=== PATIENT | female | born 1985 | race African-American/Black ===

== ENCOUNTER 2018-03-08 17:19 | Emergency (ER) | payer OTHER | END 2018-03-08 18:00 | disposition home or self-care (01) | LOC: SCSER 17:19 | DX: O99.89 Other specified diseases and conditions complicating pregnancy, childbirth and the puerperium (principal); M54.2 Cervicalgia; M25.562 Pain in left knee; Z3A.11 11 weeks gestation of pregnancy | CPT/HCPCS: 99283 ==

== ENCOUNTER 2018-03-13 20:39 | Emergency (ER) | payer OTHER ==
[2018-03-13] MEDS ORDERED: Acetaminophen 325 MG TAB ONE (21:18)
[2018-03-13 21:39] LABS: Bilirubin Negative (Negative); Blood, Urine Negative (Negative); Glucose, Urine (Dipstick) Negative (Negative); Leukocyte Large (Negative); Nitrite Negative (Negative); Protein, Urine (Dipstick) Negative (Neg-Trace); pH, Urine 7.5 (5.0-9.0)
[2018-03-13 21:43] LABS: Clarity Cloudy (Clear)
[2018-03-13 21:45] LABS: RBC/HPF None Seen HPF (0-3)
[2018-03-13 21:46] LABS: Bacteria/HPF 2+ HPF (None Seen); Crystals/HPF 1+ AMORPH PHOS HPF (Negative)
== END 2018-03-13 21:55 | disposition home or self-care (01) ==
LOC: SCSER 20:39
DX: O99.89 Other specified diseases and conditions complicating pregnancy, childbirth and the puerperium (principal); M54.5 Low back pain; Z3A.12 12 weeks gestation of pregnancy
CPT/HCPCS: 81003; 81015; 99283

== ENCOUNTER 2018-08-30 22:41 | Inpatient (IN) | payer OTHER ==
[~2018-08-30 22:41] MED LIST: Bupivacaine/Epinephrine 0.25% 30 ML VIAL ONE
[2018-08-30 23:50] VITALS: BMI 38.7
[2018-08-30 23:55] LABS: Amnisure Test RUPTURE DETECTED (No Rupture)
[2018-08-30 23:56] LABS: Amnisure Internal Control QC ACCEPTABLE (ACCEPTABLE)
[2018-08-31] MEDS: Lactated Ringer's 1,000 ML IV SCH ×2 (00:15→08:36)
[2018-08-31] MEDS ORDERED: NS / Oxytocin 40 units/1000ml 1,000 ML IV PRN (00:16)
[2018-08-31] MEDS ORDERED: Misoprostol 200 MCG TAB PR PRN (00:16)
[2018-08-31] MEDS ORDERED: Ibuprofen 800 MG TAB PO PRN (00:16)
[2018-08-31] MEDS ORDERED: Methylergonovine 0.2 MG/ML VIAL IM PRN ×2 (00:16→17:30)
[2018-08-31] MEDS ORDERED: Lidocaine 1% (PF) 30 ML VIAL SC PRN (00:16)
[2018-08-31] MEDS ORDERED: Promethazine HCl 25 MG/ML VIAL IM PRN ×2 (00:16→08:35)
[2018-08-31] MEDS ORDERED: HYDROcodone/Acetaminophen 5/325 mg Tablet PO PRN ×4 (00:16→17:30)
[2018-08-31] MEDS ORDERED: Butorphanol Tartrate 1 MG/ML VIAL SLOW IVP PRN (00:16)
[2018-08-31] MEDS ORDERED: Ondansetron PF 4 MG/2 ML Vial IVP PRN ×2 (00:16→08:35)
[2018-08-31] MEDS ORDERED: NS w/ Oxytocin 10 units 500 ML IV SCH (00:30)
[2018-08-31 01:14] LABS: Hemoglobin 10.9 g/dL (12.0-16.0); Mean Corpuscular HGB CONC 32.6 g/dL (32.0-36.0); Mean Corpuscular Hemoglobin 34.1 pg (27.0-31.0); Mean Platelet Volume 6.7 fL (7.4-10.4); Platelet Count 283 thou/uL (130-400); RBC Distribution Width 13.4 % (11.5-14.5); Red Blood Cell (RBC) Count 3.19 mill/uL (4.20-5.40); White Blood Cell (WBC) Count 7.9 thou/uL (4.8-10.8)
[2018-08-31] MEDS: Misoprostol 100 MCG TAB PO SCH ×4 (01:32→12:51)
[2018-08-31 01:54] LABS: HBSAg Index 0.28 S/CO (0-0.99); Hep B Surf Ag Non-Reactive S/CO (NonReactive)
[2018-08-31 03:51] LABS: Syphilis Antibody Nonreactive (Nonreactive); Syphilis Antibody Index 0.03 S/CO (<1.00 Non-Reactive)
[2018-08-31] MEDS ORDERED: Fentanyl 4 mcg/Bup 0.1% Cadd 100 ML ONE (07:41)
[2018-08-31] MEDS ORDERED: Lidocaine 1.5%/Epinephrine 1:200,000 5 ML AMPUL IJ ONE ×2 (07:42→08:53)
[2018-08-31] MEDS ORDERED: Eucerin (Mineral Oil/Petrolatum,White) 30 gm Jar TOP PRN (08:35)
[2018-08-31] MEDS ORDERED: Lactated Ringer's 500 ML IV PRN (08:35)
[2018-08-31] MEDS ORDERED: Acetaminophen 325 MG TAB PO PRN (08:35)
[2018-08-31] MEDS ORDERED: diphenhydrAMINE 50 MG/ML VIAL IVP PRN (08:35)
[2018-08-31] MEDS ORDERED: Naloxone HCl 0.4 mg/ml Vial IVP PRN ×2 (08:35)
[2018-08-31] MEDS ORDERED: ePHEDrine/0.9% NaCl/PF SYRINGE 50 mg/10 ml SLOW IVP PRN (08:35)
[2018-08-31] MEDS ORDERED: Fentanyl 4 mcg/Bupivacaine 0.1% Cassette 100 ML EPIDURAL SCH (08:45)
[2018-08-31] MEDS ORDERED: Communication Order-Pharmacy FS SCH (08:45)
--- NOTE | 2018-08-31 14:42 | PDOC.LDHP ---
Labor and Delivery H&P Chief complaint: loss of fluid HPI: Patient arrived to hospital reporting that her water broke. Current gestational age (weeks): 37 Due date: 09/17/18 Dating criteria: first trimester ultrasound Grav: 3 Para: 2 OB History Details: G1 1997 7.5 G2 SAB G3 2000 6lbs. at 34 weeks G4 current. Current complications: other (Mild range systolic blood pressure elevations - GHTN) Abnormal US findings: No Current medications: pre-christie vitamins, iron Previous surgical history: other (laproscopy procedure) Allergies/Adverse Reactions: Allergies Allergy/AdvReac Type Severity Reaction Status Date / Time No Known Allergies Allergy Verified 08/31/18 00:04 - Physical Exam Abnormal vital signs: Occ systolic elevations 140s. General: NAD Lungs: nonlabored breathing Abdomen: gravid - Vaginal Exam cm dilated: 0 Effacement: 25% Station: -3 - OB Labs Blood type: O RH: positive Antibody Screen: negative HIV: negative RPR: negative HEPSAg: negative 1 hour GCT: negative GBS: negative Urine drug screen: negative Rubella: immune Additional Labs: Trichomoniasis in early pregnacy - neg CHERYL and neg CHERYL at 36 weeks gestation. - Assessment L&D Assessment: term rupture in membranes - Plan Plan: admit to L&D, cervical ripening, anesthesia consult for pain management
--- NOTE | 2018-08-31 16:09 | DN ---
DATE OF PROCEDURE: 08/31/2018 The patient delivered a female on 08/31/2018 at 1452 hours by an uncomplicated term spontaneous vaginal delivery at 37 weeks gestation. Apgars were 8 and 9. Weight is unavailable at the time of dictation. Placenta delivered spontaneously followed by a Pitocin infusion. Quantitative blood loss is 310 mL. There were no lacerations. Dr. Reymundo Vance is the delivering physician. Counts were correct. Mother and baby are both stable in the immediate . Job ID: [id number]
[2018-08-31] MEDS ORDERED: Varicella virus, LIVE 0.5 ML VIAL SC ONE (17:30)
[2018-08-31] MEDS ORDERED: NS / Oxytocin 40 units/1000ml 1,000 ML IV SCH (17:30)
[2018-08-31] MEDS ORDERED: Bisacodyl 10 MG SUPP PR PRN (17:30)
[2018-08-31] MEDS ORDERED: diphenhydrAMINE 25 MG CAP PO PRN (17:30)
[2018-08-31] MEDS ORDERED: Milk Of Magnesia 30 ML UDCUP PO PRN (17:30)
[2018-08-31] MEDS ORDERED: Adacel (T-DAP) 0.5 ML SYRINGE IM ONE (17:30)
[2018-08-31] MEDS ORDERED: Measles/Mumps/Rubella 10 MCG/0.5 ML VIAL SC ONE (17:30)
[2018-08-31] MEDS ORDERED: Benzocaine/Menthol 20-0.5% 60 ML CAN TOP PRN (17:30)
[2018-08-31] MEDS ORDERED: Misoprostol 200 MCG TAB VAG PRN (17:30)
[2018-08-31] MEDS ORDERED: Ferrous Sulfate 325 MG TAB PO SCH (17:45)
[2018-08-31] MEDS: Docusate Calcium (SURFAK) 240 MG CAP PO SCH (20:20)
[2018-08-31] MEDS: Ibuprofen 800 MG TAB PO SCH (20:20)
[2018-09-01] MEDS: Ibuprofen 800 MG TAB PO SCH ×3 (05:47→21:48)
[2018-09-01 07:30] LABS: Hemoglobin 9.7 g/dL (12.0-16.0); Mean Corpuscular HGB CONC 31.5 g/dL (32.0-36.0); Mean Platelet Volume 6.9 fL (7.4-10.4); Platelet Count 271 thou/uL (130-400); RBC Distribution Width 13.5 % (11.5-14.5); Red Blood Cell (RBC) Count 2.94 mill/uL (4.20-5.40); White Blood Cell (WBC) Count 10.2 thou/uL (4.8-10.8)
[2018-09-01] MEDS: Ferrous Sulfate 325 MG TAB PO SCH ×2 (07:43→15:18)
[2018-09-01] MEDS: Lactated Ringer's 1,000 ML IV SCH (07:45)
[2018-09-01] MEDS: Misoprostol 100 MCG TAB PO SCH (07:45)
[2018-09-01] MEDS: Docusate Calcium (SURFAK) 240 MG CAP PO SCH ×2 (09:51→21:48)
[2018-09-02] MEDS: Ibuprofen 800 MG TAB PO SCH ×2 (06:12→14:13)
[2018-09-02 07:59] VITALS: BP 118/58; TEMP 98
[2018-09-02] MEDS: Ferrous Sulfate 325 MG TAB PO SCH ×2 (10:20→17:10)
[2018-09-02] MEDS: Docusate Calcium (SURFAK) 240 MG CAP PO SCH (10:20)
--- NOTE | 2018-09-02 13:47 | PDOC.PP ---
Post Progress Note Post Day #: 1 Vital Signs (12 hours) Temp Pulse Resp BP Pulse Ox 09/02/18 07:40 98.0 F 63 18 118/58 L 98 Weight Weight 212 lb - Physical Examination General: NAD Result Diagrams: 09/01/18 06:49 Additional Labs: Post Labs Blood Type O POSITIVE 08/31/18 08:05 Hep Bs Antigen Non-Reactive S/CO (NonReactive) 08/31/18 01:01 (1) SROM (spontaneous rupture of membranes) Code(s): NIB7044 - Status: Resolved (2) Normal delivery at term Code(s): O80 - ENCOUNTER FOR FULL-TERM UNCOMPLICATED DELIVERY Status: Resolved - Assessment/Plan PPD#1 s/p tsvd continue in house pp care anticipate d/c tomorrow
--- NOTE | 2018-09-03 06:43 | DIS ---
DATE OF ADMISSION: 08/31/2018 DATE OF DISCHARGE: 09/02/2018 ADMITTING DIAGNOSES: 1. Intrauterine at term, 37 weeks. 2. Spontaneous rupture of membranes. DISCHARGE DIAGNOSES: 1. Intrauterine at term, 37 weeks. 2. Spontaneous rupture of membranes. PROCEDURE: Term spontaneous vaginal delivery. HOSPITAL COURSE: The patient is a 33-year-old G4, P2 female with an intrauterine at 37 weeks, who was presented with spontaneous rupture of membranes and was admitted by her provider, Marianne Vargas CNM, for induction of labor. The patient's course was uncomplicated and resulted in uncomplicated term spontaneous vaginal delivery and then was subsequently sent to for recovery. Her course has been uncomplicated, is now day #2. The patient had no complaints this morning. She reports that she is tolerating p.o., voiding on her own, having decreased lochia, and good pain control. PHYSICAL EXAMINATION: VITAL SIGNS: Blood pressure is 118/58, temperature 98.0, pulse is 63, respiratory rate of 18, saturating 98% on room air. GENERAL: She appears to be in no acute distress. She is alert, oriented, cooperative, and pleasant to interact with. ABDOMEN: Fundus is firm. EXTREMITIES: Nontender. LABORATORY STUDIES: Her hemoglobin 9.7, hematocrit 30.9, platelets 271,000. The patient is being discharged to home with [id number] ibuprofen for pain control. She has instructions to follow up with her primary provider, Marianne Vargas CNM, in 6 weeks or sooner if she experiences fever, increasing pain, or bleeding. Job ID: [id number]
== END 2018-09-02 18:31 | disposition home or self-care (01) | DRG 807 ==
LOC: L&D/OP 22:41 → L&D 08-31 00:43 → 3SW 08-31 17:35
PROVIDERS: ADMIT Student in an Organized Health Care Education/Training Program; ATTEND Student in an Organized Health Care Education/Training Program
PROC: 10E0XZZ Delivery of Products of Conception, External Approach (ICD-10-PCS; principal; 2018-08-31)
DX: O13.4 Gestational [pregnancy-induced] hypertension without significant proteinuria, complicating childbirth (principal); Z37.0 Single live birth; O99.02 Anemia complicating childbirth; D50.9 Iron deficiency anemia, unspecified; Z3A.37 37 weeks gestation of pregnancy
CPT/HCPCS: 36415; 51702; 84112; 85027; 86780; 86850; 86900; 86901; 87340; 99285; J1200; J2001; J2405; J3490; Q0163

== ENCOUNTER 2019-05-24 18:34 | Emergency (ER) | payer OTHER, SELFPAY ==
[2019-05-24] MEDS ORDERED: Lidocaine 1% w/Epinephrine 1:100K 20 ML VIAL ONE (19:12)
== END 2019-05-24 19:41 | disposition home or self-care (01) ==
LOC: SCSER 18:34
DX: L02.412 Cutaneous abscess of left axilla (principal)
CPT/HCPCS: 10060

== ENCOUNTER 2021-06-11 21:09 | Emergency (ER) | payer SELFPAY ==
[2021-06-11] MEDS ORDERED: Lidocaine 1% PF 5 ML VIAL ONE (22:42)
== END 2021-06-12 00:05 | disposition home or self-care (01) ==
LOC: ERS 21:09
DX: L02.31 Cutaneous abscess of buttock (principal)
CPT/HCPCS: 99282

== ENCOUNTER 2022-06-19 16:05 | Emergency (ER) | payer SELFPAY | END 2022-06-19 17:58 | LOC: ERS 16:05 | DX: B34.9 Viral infection, unspecified (principal); Z20.822 Contact with and (suspected) exposure to COVID-19 | CPT/HCPCS: 87804; 99283; U0003; U0005 ==